=== PATIENT | male | born 1965 | race Caucasian/White ===

== ENCOUNTER 2016-07-19 04:18 | Emergency (ER) | payer SELFPAY ==
[2016-07-19 05:25] LABS: BASOPHIL 0.5 % (0-2); EOSINOPHIL 2.8 % (0-5); HCT 42.8 % (42.0-52.0); HGB 14.7 g/dl (13.2-18.0); LYMPHOCYTE 18.9 % (15-48); MCH 28.8 pg (25.0-31.0); MCHC 34.3 g/dL (32.0-36.0); MCV 83.8 fL (78.0-100.0); MONOCYTE 5.7 % (0-12); MPV 9.6 fL (6.0-9.5); NEUTROPHIL 72.1 % (41-80); PLT 266 K/uL (150-400); RBC 5.11 M/uL (4.70-6.00); WBC 7.6 K/uL (4.0-10.5)
[2016-07-19 05:33] LABS: ALBUMIN 4.4 g/dL (3.5-5.0); BILIRUBIN - TOTAL 0.3 mg/dL (0.1-1.0); CREATININE 0.8 mg/dL (0.7-1.2); GLOBULIN (CALCULATION) 2.8 g/dL (2.2-4.2); POTASSIUM 4.2 mmol/L (3.5-5.1); TOTAL PROTEIN 7.2 g/dL (6.4-8.3)
[2016-07-19 07:33] LABS: BILIRUBIN NEGATIVE (NEGATIVE); BLOOD NEGATIVE Ery/uL (NEGATIVE); CLARITY CLEAR (CLEAR); COLOR YELLOW (YELLOW); GLUCOSE (U) NORMAL (NORMAL); KETONE (U) NEGATIVE (NEGATIVE); LEUKOCYTES NEGATIVE Leu/uL (NEGATIVE); NITRITE NEGATIVE (NEGATIVE); PROTEIN NEGATIVE (NEGATIVE); UROBILINOGEN 0.2 mg/dL (0.2-1.0); pH 8.5 (5.0-9.0)
== END 2016-07-19 08:57 | disposition home or self-care (01) ==
LOC: FER 04:18
PROVIDERS: Emergency Medicine
DX: R10.84 Generalized abdominal pain (principal); R91.8 Other nonspecific abnormal finding of lung field; R11.0 Nausea
CPT/HCPCS: 36415; 80053; 81003; 83690; 84484; 85025; J2270; J2405; Q9967

== ENCOUNTER 2020-10-22 04:11 | Emergency (ER) | payer OTHER ==
[2020-10-22 05:43] LABS: EOSINOPHIL 3.3 % (0-5); HCT 42.2 % (42.0-52.0); HGB 14.3 g/dl (13.2-18.0); LYMPHOCYTE 18.9 % (15-48); MCHC 33.9 g/dL (32.0-36.0); MCV 85.6 fL (78.0-100.0); MONOCYTE 6.5 % (0-12); MPV 9.3 fL (6.0-9.5); NRBC 0; PLT 222 K/uL (150-400); RBC 4.93 M/uL (4.70-6.00); RDW 12.3 % (11.5-14.0); WBC 6.3 K/uL (4.0-10.5)
[2020-10-22 06:03] LABS: ALBUMIN 3.9 g/dL (3.4-5.0); ALKALINE PHOSHATASE 77 U/L (46-116); ALT 47 U/L (16-63); AST 29 U/L (15-37); BILIRUBIN - TOTAL 0.3 mg/dL (0.2-1.0); BUN 18 mg/dL (7-18); BUN/CREAT RATIO (CALC) 18.8 RATIO; C-REACTIVE PROTEIN <0.20 mg/dL (<=0.90); CHLORIDE 101 mmol/L (98-107); CO2 (BICARBONATE) 28 mmol/L (21-32); CREATININE 0.96 mg/dL (0.67-1.17); GLUCOSE 160 mg/dL (74-106); POTASSIUM 4.1 mmol/L (3.5-5.1); TOTAL PROTEIN 7.9 g/dL (6.4-8.2)
[2020-10-22] MEDS ORDERED: MOBIC7.5 MG PO (07:11)
[2020-10-22] MEDS ORDERED: DIAZEPAM 5MG TAB5 MG PO (07:11)
[2020-10-22] MEDS ORDERED: ONDANSETRON ODT4 MG SL (07:11)
[2020-10-22] MEDS ORDERED: VIBRAMYCIN100 MG PO (07:11)
[2020-10-22] MEDS ORDERED: LISINOPRIL-HCT1 EAC2 PO (07:11)
== END 2020-10-22 06:55 | disposition home or self-care (01) ==
LOC: FER 04:11
PROVIDERS: Emergency Medicine Emergency Medical Services
DX: J32.0 Chronic maxillary sinusitis (principal); I10 Essential (primary) hypertension; Z88.6 Allergy status to analgesic agent; Z88.1 Allergy status to other antibiotic agents; Z88.8 Allergy status to other drugs, medicaments and biological substances; Z79.899 Other long term (current) drug therapy
CPT/HCPCS: 36415; 70450; 80053; 84484; 85025; 86140; J1100; J1885; J2405; J2800; J7030; J7050